=== PATIENT | female | born 1990 | race Caucasian/White ===

== ENCOUNTER → 2017-08-10 | Outpatient (CLI) | payer OTHER | END | disposition home or self-care (01) | LOC: CARD 12:21 | PROVIDERS: ATTEND Psychiatry & Neurology Neurology | DX: H50.15 Alternating exotropia (principal); H35.53 Other dystrophies primarily involving the sensory retina; H46.8 Other optic neuritis | CPT/HCPCS: 95930 ==

== ENCOUNTER → 2020-12-06 | Outpatient (CLI) | payer MEDICAID ==
[~2020-12-06] MED LIST: BUPIVACAINE/PF 0.5% ONE; LIDOCAINE-MPF 1%, 5ML ONE
== END | disposition home or self-care (01) ==
LOC: RAD 12:40
PROVIDERS: ATTEND Orthopaedic Surgery
DX: D36.13 Benign neoplasm of peripheral nerves and autonomic nervous system of lower limb, including hip (principal)
CPT/HCPCS: 20605; 77002; S0020